=== PATIENT | male | born 1985 | race Caucasian/White ===

== ENCOUNTER 2016-10-04 08:53 | Day surgery (SDC) | payer OTHER ==
[~2016-10-04] VITALS: Ht 175.3 cm; Wt 63.2 kg
[2016-10-04] VITALS (18 sets, daily range): BP systolic 116–140; BP diastolic 56–86; PULSE 56–84; RESP 10–63; Ht 175.3 cm; Wt 63.2 kg
[2016-10-04] MEDS ORDERED: CEFAZOLIN 2 GM/50 ML (PMX) 50 ML IVPB SCH (10:18)
[2016-10-04] MEDS ORDERED: FENTAnyl 50 MCG/ML VIAL ONE (10:42)
[2016-10-04] MEDS ORDERED: ONDANSETRON 4 MG INJ ONE ×2 (10:42→13:00)
[2016-10-04] MEDS ORDERED: ROCURONIUM 50 MG INJ ONE (10:42)
[2016-10-04] MEDS ORDERED: PROPOFOL 20 ML ONE (10:42)
[2016-10-04] MEDS ORDERED: CEFAZOLIN 1 GM INJ ONE (10:42)
[2016-10-04] MEDS ORDERED: SUCCINYLCHOLINE CHLORIDE 100 MG/5 ML SYG IV ONE (10:42)
[2016-10-04] MEDS ORDERED: morphine SULFATE/PF (10 MG/10 ML) INJ ONE (11:46)
[2016-10-04] MEDS ORDERED: POLYMYXIN/BACITRACIN 1L IRRIG IRR ONE (12:07)
[2016-10-04] MEDS ORDERED: BACITRACIN 50000 UNITS INJ IRR ONE (12:08)
[2016-10-04] MEDS ORDERED: ONDANSETRON 4 MG INJ IV PRN (12:30)
[2016-10-04] MEDS ORDERED: MEPERIDINE 25 MG INJ IV PRN (12:30)
[2016-10-04] MEDS ORDERED: HYDROmorphONE (0.2 MG/ML) 10ML SYG IV PRN ×2 (12:30)
[2016-10-04] MEDS ORDERED: FENTAnyl 50 MCG/ML VIAL IV PRN ×2 (12:30)
[2016-10-04] MEDS ORDERED: MEPERIDINE 25 MG INJ ONE (13:00)
[2016-10-04] MEDS ORDERED: HYDROmorphONE (0.2 MG/ML) 10ML SYG IV ONE (13:08)
[2016-10-04] MEDS: HYDROmorphONE (0.2 MG/ML) 10ML SYG IV PRN ×2 (13:20→13:27)
--- NOTE | 2016-10-04 13:20 | OPR ---
Date/Time of Note Date/Time of Note DATE: 10/04/16 TIME: 13:13 Operative Report Procedure Date: Oct 04, 2016 Preoperative Diagnosis Osteomyelitis of right tibia is no swelling mucositis skin defect right Postop diagnosis the same Procedure removal of hardware 1 week plate and 9 deep screws irrigation and debridement rearrangement skin for skin defects complications from his dressing Anesthesia general Bleeding minimal Complications are none Operative procedure patient was transferred to the operating room and placed on operative table in supine position. 2 g of Ancef was given IV hemoglobin was applied to left lower. Right tibia was shaved prepped and draped in the routine fashion. After induction of general anesthesia using the Esmarch tourniquet was inflated to 275 mm medical. Through the previous incision was made from the skin and subcutaneous tissue plate was exposed and the screws was exposed using periosteal 6 cortical screws and 3 locking screws were removed from from the plate. The plate was removed from the bone underneath the plate looked clean with no sign of. 2 cm away and more lateral from the origin incision was centimeters area with metallic skin and the skin defect. Removal of the wedge skin necrotic wounds was done from this skin on the malignancy too much sign of infection at home with irrigation debridement was done and irrigation copious amount of saline and bacitracin was performed necrotic tissue was. Graft was used to to fill up the screw holes. Skin was closed and subcutaneous tissue to 2 Vicryl. Skin was closed with skin shari. 10 mg Duramorph was injected skin incision strong dressing was applied she was receiving was placed on general anesthesia. The patient was taken to recovery room in stable condition. Send a copy of this to Dr. Peterson is PCP [place] dictation MARTHA MANN MD Oct 04, 2016 13:20
[2016-10-04] MEDS ORDERED: HYDROCODONE/APAP (5/325) TAB PO PRN ×2 (13:30)
== END 2016-10-04 15:15 | disposition home or self-care (01) ==
LOC: SDS 08:53
PROVIDERS: ATTEND Internal Medicine Endocrinology, Diabetes & Metabolism
DX: Z45.89 Encounter for adjustment and management of other implanted devices (principal); M86.8X6 Other osteomyelitis, lower leg
CPT/HCPCS: 20680; 88300; C1713; J0690; J1170; J2175; J2274; J2405; J3010; J7999; Z7512; Z7610